=== PATIENT | female | born 1980 | race Two or more races ===

== ENCOUNTER 2021-09-14 22:49 | Emergency (ER) | payer MEDICAID, OTHER ==
[~2021-09-14] VITALS: Ht 175.3 cm; Wt 84.4 kg
[2021-09-15 01:05] VITALS: BP 130/85
[2021-09-15] MEDS ORDERED: ACETAMINOPHEN 500 MG TAB PO ONE (01:15)
== END 2021-09-15 02:53 | disposition home or self-care (01) ==
LOC: EDBD 22:49 → ER 22:49
DX: R42 Dizziness and giddiness (principal); G89.29 Other chronic pain; R10.9 Unspecified abdominal pain
CPT/HCPCS: 93005

== ENCOUNTER 2024-08-25 09:06 | Inpatient (IN) | payer OTHER, MEDICAID ==
[~2024-08-25] VITALS: Ht 175.3 cm; Wt 76.9 kg
[2024-08-25] MEDS: SODIUM CHLORIDE 0.9% 1,000 ML IV ONE (09:45)
[2024-08-25] MEDS: KETOROLAC TROMETH 30 MG/ML 1ML VIAL IV ONE (09:45)
[2024-08-25] MEDS: ONDANSETRON HCL 4 MG/2 ML VIAL IV ONE (09:45)
[2024-08-25 09:46] LABS: Urine Bacteria None Seen /hpf (None Seen)
[2024-08-25 09:51] LABS: Basophils # (auto) 0.1 10 ^3/uL (0-0.2); Eosinophils # (auto) 0.1 10 ^3/uL (0-0.8); Eosinophils % (auto) 1.3 % (0.0-7.0); Hematocrit 38.6 % (36.0-46.0); Lymphocytes # (auto) 2.3 10 ^3/uL (0.4-5.4); Mean Corpuscular Hemoglobin 29.8 pg (28.0-32.0); Mean Corpuscular Hgb Conc. 33.6 g/dL (32.0-36.0); Mean Corpuscular Volume 88.7 fL (80.0-100.0); Monocytes # (auto) 0.2 10 ^3/uL (0-1.3); Monocytes % (auto) 3.7 % (0.0-12.0); Neutrophils # (auto) 3.4 10 ^3/uL (1.6-8.6); Platelet Count (auto) 147 10^3/uL (140-450); Red Blood Cells 4.35 10^6/uL (4.0-5.20); Red Cell Distribution Width 12.7 % (11.8-14.3); White Blood Cell 6.2 10^3/uL (4.4-10.8)
[2024-08-25 10:03] LABS: Urine Blood Negative /uL (Negative); Urine Clarity Clear (Clear); Urine Color Yellow (Yellow); Urine Mucus FEW (None Seen); Urine Protein, UAD TRACE (Negative); Urine Specific Gravity 1.027 (1.001-1.035); Urine Squamous Epithelial Cell FEW /hpf (<5); Urine Urobilinogen Normal (Negative); Urine WBC 1 /HPF (0-5); Urine pH 5.5 (5.0-9.0)
[2024-08-25] MEDS: IOHEXOL 300 MG/ML 100ML BOTTLE IJ ONE (10:03)
[2024-08-25 10:50] LABS: Potassium 4.1 mmol/L (3.5-5.1); Sodium 140 mmol/L (136-145)
[2024-08-25 10:51] LABS: Anion Gap 11 (5-15); Carbon Dioxide 21 mmol/L (20-31)
[2024-08-25 10:52] LABS: Calcium 10.1 mg/dL (8.7-10.4)
[2024-08-25 10:57] LABS: BUN/Creatinine Ratio 10.8 (10.0-20.0); Blood Urea Nitrogen 10 mg/dL (9-23)
[2024-08-25 11:03] LABS: Chloride 108 mmol/L (98-107)
[2024-08-25 11:35] LABS: Glucose 192 mg/dL (74-106)
--- NOTE | 2024-08-25 13:01 | DVH ---
Exam: CT CT AB PEL WITH IV CON ONLY History: lower abdominal pain COMPARISON: None Technique: Multidetector spiral CT of the abdomen and pelvis was performed from lung bases to pubic symphysis. Intravenous contrast was administered during this examination. Portal venous imaging was obtained. Axial, coronal and sagittal multiplanar reformats were performed by the technologist on a separate workstation. Radiation Dose : Abdomen/Pelvis: CTDIvol 5 mGy, DLP 355 mGy*cm. CONTRAST: Type of contrast: Omni 300 Contrast injected: 100 mL Findings: Lung Bases: No acute or significant lung base finding. Normal heart size. No pleural or pericardial effusion. Liver: The liver is normal in size. No focal lesions. Normal hepatic vascular enhancement. Gallbladder and biliary Tree: Unremarkable Spleen: Unremarkable Pancreas: The pancreas is normal in appearance without focal lesions or abnormal enhancement. Adrenal Glands: Unremarkable Kidneys: No hydronephrosis. Bladder: Unremarkable Bowel: The stomach is grossly normal in appearance. Small bowel and colon are normal in caliber and d istribution. Normal appendix is visualized in the right lower quadrant without findings of appendici tis. Ascites: Absent Lymphadenopathy: No mesenteric, retroperitoneal or periportal lymphadenopathy. Abdominal wall and Mesentery: Unremarkable. Vasculature: The visualized abdominal aorta is normal in size and caliber. Abdominal and pelvic vess els demonstrate normal enhancement. Pelvic Organs: The uterus is surgically absent. Musculoskeletal: No aggressive focal bony lesions, acute fractures or dislocation. IMPRESSION: 1. No acute abdominal or pelvic finding. Radiation optimization: All CT scans at this facility use at least one of these dose optimization concepcion hniques: Automated exposure control mA and/or kV adjustment per patient size (includes targeted exams where dose is matched to clinical indication) or iterative reconstruction. HS:Y
--- NOTE | 2024-08-25 13:36 | ED.PDOC ---
History of Present Illness HPI Comments 44-year-old woman status post hysterectomy presents with 1 year of intractable lower abdominal pain that has increased in severity over the past week. She reports the pain is 10 in 10 not relieved by anything. She denies any fever chills nausea vomiting diarrhea dysuria or polyuria. 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 Was a procedure done?: No Differential Dx Considerations may include: Pelvic outlet syndrome, gastritis, gastroenteritis, appendicitis, colitis X-Ray, Labs, Meds, VS Vital Signs Date Time Temp Pulse Resp B/P (MAP) Pulse Ox O2 Delivery O2 Flow Rate FiO2 08/25/24 09:52 97.8 98 15 125/80 (95) 100 97.8 08/25/24 09:52 Room Air* 0 21 08/25/24 09:20 97.0 100 18 128/85 (99) 100 Lab Test 08/25/24 09:36 08/25/24 09:30 Range/Units White Blood Count 6.2 4.4-10.8 10^3/uL Red Blood Count 4.35 4.0-5.20 10^6/uL Hemoglobin 13.0 12.2-16.2 g/dL Hematocrit 38.6 36.0-46.0 % Mean Corpuscular Volume 88.7 80.0-100.0 fL Mean Corpuscular Hemoglobin 29.8 28.0-32.0 pg Mean Corpuscular Hemoglobin Concent 33.6 32.0-36.0 g/dL Red Cell Distribution Width 12.7 11.8-14.3 % Platelet Count 147 140-450 10^3/uL Mean Platelet Volume 10.0 6.9-10.8 fL Neutrophils (%) (Auto) 56.0 37.0-80.0 % Lymphocytes (%) (Auto) 38.0 10.0-50.0 % Monocytes (%) (Auto) 3.7 0.0-12.0 % Eosinophils (%) (Auto) 1.3 0.0-7.0 % Basophils (%) (Auto) 1.0 0.0-2.0 % Neutrophils # (Auto) 3.4 1.6-8.6 10 ^3/uL Lymphocytes # (Auto) 2.3 0.4-5.4 10 ^3/uL Monocytes # (Auto) 0.2 0-1.3 10 ^3/uL Eosinophils # (Auto) 0.1 0-0.8 10 ^3/uL Basophils # (Auto) 0.1 0-0.2 10 ^3/uL Nucleated Red Blood Cells 0.0 % Sodium Level 140 136-145 mmol/L Potassium Level 4.1 3.5-5.1 mmol/L Chloride Level 108 H 98-107 mmol/L Carbon Dioxide Level 21 20-31 mmol/L Anion Gap 11 5-15 Blood Urea Nitrogen 10 9-23 mg/dL Creatinine 0.93 0.550-1.02 mg/dL Glomerular Filtration Rate Calc 78 >90 mL/min BUN/Creatinine Ratio 10.8 10.0-20.0 Serum Glucose 192 H 74-106 mg/dL Calcium Level 10.1 8.7-10.4 mg/dL Urine Color Yellow Yellow Urine Clarity Clear Clear Urine pH 5.5 5.0-9.0 Urine Specific [place] 1.027 1.001-1.035 Urine Protein Trace H Negative Urine Ketones Negative Negative Urine Blood Negative Negative /uL Urine Nitrite Negative Negative Urine Bilirubin Negative Negative Urine Urobilinogen Normal Negative mg/dL Urine Leukocyte Esterase Trace Negative /uL Urine RBC <1 0 - 4 /hpf Urine Microscopic WBC 1 0-5 /HPF Urine Squamous Epithelial Cells Few <5 /hpf Urine Bacteria None seen None Seen /hpf Urine Mucus Few None Seen Urine Glucose Trace Normal mg/dL Urine Test Negative Negative Current Medications Medications (Trade) Dose Ordered Sig/Angelique Route Start Time Stop Time Status Last Admin Sodium Chloride 1,000 ml @ 1,000 mls/hr Q1H ONCE IV 08/25/24 09:30 08/25/24 10:29 DC 08/25/24 09:45 Ondansetron HCl (Zofran) 4 mg ONCE ONCE IV 08/25/24 09:30 08/25/24 09:31 DC 08/25/24 09:45 Ketorolac Tromethamine (Toradol Injection) 15 mg ONCE ONCE IV 08/25/24 09:30 08/25/24 09:31 DC 08/25/24 09:45 Time of 1ST Reevaluation: 13:33 Reevaluation 1ST: Improved Patient Education/Counseling: Diagnosis, Treatment Family Education/Counseling: No Family Present Departure 1 Departure Time of Disposition: 13:33 (Patient presented with abdominal pain that was concerning for possible appendicits, gastritis, cholecystitis, colitis, gastroenteritis, sbo, or orther possible surgical emergency. Data: 1. I ordered and reviewed the result of at least 3 labs including a CBC, BMP, and Urinalysis. 2. I independently interpreted the following tests: CT Abdoment and Pelvis is concerning for benign abdomen .Risk:This patient has a high risk of morbidity due to further diagnostic testing or treatment and may suffer from an acute abdominal process disorder. Workup reveals intractable abdominal pain and patient should be admitted for further workup. and possible expert consultation. ) Impression: Primary Impression: Intractable abdominal pain Disposition: ADMITTED INPATIENT Admit to: Med Surg Condition: Serious Critical Care Note Critical Care Time?: No Stability Stability form required: No Heart Score Heart Score: Heart Score Response (Comments) Value History N/A 0 EKG N/A 0 Age N/A 0 Risk Factors N/A 0 Troponin N/A 0 Total 0 VICTOR MANUEL GUPTA MD Aug 25, 2024 13:36
[2024-08-25] MEDS ORDERED: ONDANSETRON HCL 4 MG/2 ML VIAL IV PRN (15:00)
[2024-08-25] MEDS ORDERED: DOCUSATE SOD 100 MG CAP PO PRN (15:00)
[2024-08-25] MEDS ORDERED: ACETAMINOPHEN 325 MG TAB PO PRN (15:00)
[2024-08-25] MEDS ORDERED: MORPHINE SULFATE INJ 2 MG/ml SYRG IV PRN (15:30)
[2024-08-25] MEDS ORDERED: NITROGLYCERIN 0.4 MG SL TAB SL PRN (15:30)
[2024-08-25] MEDS ORDERED: DEXTROSE (50%) 50ML SYRG IV PRN (15:30)
--- NOTE | 2024-08-25 15:34 | DVHHP2 ---
History of Present Illness Reason for Visit: Intractable abdominal pain History of Present Illness The patient is a 44-year-old female with past medical history of DM and schizophrenia presented to [facility] ED with complaint intermittent abdominal pain for the past 1 year. Patient reports symptoms progressively get worse with intractable lower abdominal pain, increasing severity, rating 10/10 numeric scale, getting worse that prompted this visit. Patient was seen and evaluated in the ED, laboratory data shows WBC 6.2, platelets 147, sodium 140, potassium 4.1, BUN 10, creatinine 0.93, GFR 78, glucose 192, calcium 10.1. Abdomen/pelvis CT showed no acute abdominal or pelvic finding. Please see medication orders section in the computer. On my assessment, patient denied chest pain, no headache, no dizziness, no shortness of breath, no abdominal pain at this moment, no diarrhea, no nausea, no vomiting, no fever, no chills. Patient was admitted for further evaluation and medical management. Past Medical History Diabetes mellitus, schizophrenia Past Surgical History Denies all surgeries Family History Reviewed, noncontributory to the management of this case. Past Social History The patient lives at home, denies smoking, alcohol or illicit drugs abuse. Review of Systems Constitutional: No: Fever, Chills, Sweats, Weakness, Malaise, Other Eyes: No: Pain, Vision change, Conjunctivae inflammation, Eyelid inflammation, Other, Redness ENT: No: Ear pain, Ear discharge, Nose pain, Nose discharge, Nose congestion, Mouth pain, Mouth swelling, Throat pain, Throat swelling, Other Respiratory: No: Cough, Dry, Shortness of breath, SOB with excertion, Wheezing, Hemoptysis, Pleuritic Pain, Sputum, Wheezing, Other Cardiovascular: No: Chest Pain, Palpitations, Orthopnea, Paroxysmal Noc. Dyspnea, Edema, Lt Headedness, Other Gastrointestinal: Abdominal Pain; No: Nausea, Vomiting, Diarrhea, Constipation, Melena, Hematochezia, Other Genitourinary: No Dysuria, No Frequency, No Incontinence, No Hematuria, No Retention, No Other Musculoskeletal: No: other, neck pain, shoulder pain, arm pain, back pain, hand pain, leg pain, foot pain Skin: No: Rash, Lesions, Jaundice, Bruising, Other Neurological: No: Weakness, Numbness, Incoordination, Change in speech, Confusion, Seizures, Other Allergies: Coded Allergies: Morphine (Verified Allergy, Unknown, 09/14/21) Medications Current Medications Medications Dose Ordered Sig/Angelique Route Start Time Stop Time Status Last Admin Dose Admin Pantoprazole Sodium 40 mg DAILY IV 08/26/24 10:00 Sodium Chloride 10 ml Q8HR IV 08/25/24 22:00 Acetaminophen/ Hydrocodone Bitart 1 tab Q4HP PRN PO 08/25/24 15:00 Ondansetron HCl 4 mg Q4HP PRN IV 08/25/24 15:00 Docusate Sodium 100 mg BIDPRN PRN PO 08/25/24 15:00 Acetaminophen 650 mg Q6HP PRN PO 08/25/24 15:00 Exam Vital Signs Vital Signs Date Time Temp Pulse Resp B/P (MAP) Pulse Ox O2 Delivery O2 Flow Rate FiO2 08/25/24 09:52 97.8 98 15 125/80 (95) 100 97.8 08/25/24 09:52 Room Air* 0 21 General Appearance: Alert, Oriented X3, Cooperative, No acute distress HEENT: Atraumatic, PERRLA, EOMI, Mucous membr. moist/pink Respiratory: Clear to auscultation, Normal air movement Cardiovascular: Regular rate, Normal S1, Normal S2, No murmurs Abdominal: Normal bowel sounds, Soft, No tenderness, No hepatospenomegaly, No masses Extremities: No clubbing, No cyanosis, No edema, Normal pulses, No tenderness/swelling Skin: No rashes, No breakdown, No significant lesion Neuro: Normal gait, Normal speech, Strength at 5/5 X4 ext, Normal tone, Sens ation intact, Cranial nerves 3-12 NL, Reflexes 2+ Psych/Mental Status: Mental status NL, Mood NL Labs/Xrays Labs Test 08/25/24 09:36 08/25/24 09:30 Range/Units White Blood Count 6.2 4.4-10.8 10^3/uL Red Blood Count 4.35 4.0-5.20 10^6/uL Hemoglobin 13.0 12.2-16.2 g/dL Hematocrit 38.6 36.0-46.0 % Mean Corpuscular Volume 88.7 80.0-100.0 fL Mean Corpuscular Hemoglobin 29.8 28.0-32.0 pg Mean Corpuscular Hemoglobin Concent 33.6 32.0-36.0 g/dL Red Cell Distribution Width 12.7 11.8-14.3 % Platelet Count 147 140-450 10^3/uL Mean Platelet Volume 10.0 6.9-10.8 fL Neutrophils (%) (Auto) 56.0 37.0-80.0 % Lymphocytes (%) (Auto) 38.0 10.0-50.0 % Monocytes (%) (Auto) 3.7 0.0-12.0 % Eosinophils (%) (Auto) 1.3 0.0-7.0 % Basophils (%) (Auto) 1.0 0.0-2.0 % Neutrophils # (Auto) 3.4 1.6-8.6 10 ^3/uL Lymphocytes # (Auto) 2.3 0.4-5.4 10 ^3/uL Monocytes # (Auto) 0.2 0-1.3 10 ^3/uL Eosinophils # (Auto) 0.1 0-0.8 10 ^3/uL Basophils # (Auto) 0.1 0-0.2 10 ^3/uL Nucleated Red Blood Cells 0.0 % Sodium Level 140 136-145 mmol/L Potassium Level 4.1 3.5-5.1 mmol/L Chloride Level 108 H 98-107 mmol/L Carbon Dioxide Level 21 20-31 mmol/L Anion Gap 11 5-15 Blood Urea Nitrogen 10 9-23 mg/dL Creatinine 0.93 0.550-1.02 mg/dL Glomerular Filtration Rate Calc 78 >90 mL/min BUN/Creatinine Ratio 10.8 10.0-20.0 Serum Glucose 192 H 74-106 mg/dL Calcium Level 10.1 8.7-10.4 mg/dL Urine Color Yellow Yellow Urine Clarity Clear Clear Urine pH 5.5 5.0-9.0 Urine Specific [place] 1.027 1.001-1.035 Urine Protein Trace H Negative Urine Ketones Negative Negative Urine Blood Negative Negative /uL Urine Nitrite Negative Negative Urine Bilirubin Negative Negative Urine Urobilinogen Normal Negative mg/dL Urine Leukocyte Esterase Trace Negative /uL Urine RBC <1 0 - 4 /hpf Urine Microscopic WBC 1 0-5 /HPF Urine Squamous Epithelial Cells Few <5 /hpf Urine Bacteria None seen None Seen /hpf Urine Mucus Few None Seen Urine Glucose Trace Normal mg/dL Urine Test Negative Negative PATIENT: KAT ZULUAGA RACCT: [id number] UNIT: [id number] : 1980 LOC: ER ROOM / BED: / AGE / SEX: 44 / F ADM STATUS: REG ER SERVICE [id number] ORDERING PHYSICIAN: VICTOR MANUEL GUPTA MD PROCEDURE(s): ABPLIV - CT AB PEL WITH IV CON ONLY REASON: lower abdominal pain ORDER NUMBER(s): [id number], ACCESSION NUMBER(s): [id number] Exam: CT CT AB PEL WITH IV CON ONLY History: lower abdominal pain COMPARISON: None Technique: Multidetector spiral CT of the abdomen and pelvis was performed from lung bases to pubic symphysis. Intravenous contrast was administered during this examination. Portal venous imaging was obtained. Axial, coronal and sagittal multiplanar reformats were performed by the technologist on a separate workstation. Radiation Dose: Abdomen/Pelvis: CTDIvol 5 mGy, DLP 355 mGy*cm. CONTRAST: Type of contrast: Omni 300 Contrast injected: 100 mL Findings: Lung Bases: No acute or significant lung base finding. Normal heart size. No pleural or pericardial effusion. Liver: The liver is normal in size. No focal lesions. Normal hepatic vascular enhancement. Gallbladder and biliary Tree: Unremarkable Spleen: Unremarkable Pancreas: The pancreas is normal in appearance without focal lesions or abnormal enhancement. Adrenal Glands: Unremarkable Kidneys: No hydronephrosis. Bladder: Unremarkable Bowel: The stomach is grossly normal in appearance. Small bowel and colon are normal in caliber and distribution. Normal appendix is visualized in the right lower quadrant without findings of appendicitis. Ascites: Absent Lymphadenopathy: No mesenteric, retroperitoneal or periportal lymphadenopathy. Abdominal wall and Mesentery: Unremarkable. Vasculature: The visualized abdominal aorta is normal in size and caliber. Abdominal and pelvic vessels demonstrate normal enhancement. Pelvic Organs: The uterus is surgically absent. Musculoskeletal: No aggressive focal bony lesions, acute fractures or dislocation. IMPRESSION: 1. No acute abdominal or pelvic finding. Assessment/Plan Assessment/Plan Intractable abdominal pain Diabetes mellitus with hyperglycemia Plan 1. Admit to med surge unit 2. Breathing treatment 3. Pain control management 4. Management of fluids and electrolytes 5. Consultation for hospitalist 6. Diagnostic tests abdomen/pelvis CT 7. DVT prophylaxis on SCDs 8. Repeat labs CBC, CMP in a.m. 9. Continue with current medical management 10. Treatment plan discussed with patient and RN. Patient verbalized understanding. Plan discussed with: Patient, Other (RN) My Orders Orders - NATHAN RAGSDALE DNP Procedure Category Date Status Time Hemoglobin A1c LAB 08/25/24 In Process 14:49 Pantoprazole PHA 08/26/24 In Process (Protonix) 10:00 Allergies ZION 08/25/24 In Process 14:49 Code Status CODE 08/25/24 Transmitted 14:49 Sodium Chloride Lock PHA 08/25/24 In Process (Saline Lock Ns) 22:00 Oxygen Per Hour RT 08/25/24 Transmitted 14:49 Hydrocodone-Acet PHA 08/25/24 In Process 5/325mg Tab ([place] 15:00 Ondansetron Hcl PHA 08/25/24 In Process (Zofran) 15:00 Docusate Sodium PHA 08/25/24 In Process Capsule (Colace 15:00 Complete Blood Count LAB 08/26/24 Verified 04:00 Comprehensive LAB 08/26/24 Verified Metabolic Panel 04:00 Condition: Serious ZION 08/25/24 In Process 14:49 Acetaminophen Tablet PHA 08/25/24 In Process (Tylenol Tablet) 15:00 Bedrest With Bathroom ZION 08/25/24 In Process Privileg 14:49 Sequential ZION 08/25/24 In Process Compression Device Risperidone Tablet PHA 08/26/24 Verified (Risperdal Tablet) 10:00 Consistent DIET 08/25/24 Verified Carb(Ccho)Diabetes Dinner Glucose Blood PHA 08/25/24 Verified (Accu-Chek Comfort 17:00 Bedtime Insulin Scale PHA 08/25/24 Verified 22:00 Moderate Insulin Ss PHA 08/25/24 Verified 17:00 Dextrose 50% Syringe PHA 08/25/24 Verified 15:30 Admit ADMIT 08/25/24 Verified 15:29 Nitroglycerin PHA 08/25/24 Verified Sublingual (Ntrostat 15:30 Morphine Sulfate PHA 08/25/24 Verified Injection 15:30 Notify Md Of Changes ZION 08/25/24 Verified From Base 15:29 Emergency Dysrhythmia ZION 08/25/24 Verified Protocol 15:29 Oxygen By Nasal RT 08/25/24 Verified Cannula 15:29 Problem List: (1) Intractable abdominal pain (2) Diabetes mellitus with hyperglycemia Date of Service: Aug 25, 2024 Billing Provider: NATHAN RAGSDALE DNP Common Visit Codes: 51840-[id number] INP/OBS CARE (HIGH) NATHAN RAGSDALE DNP Aug 25, 2024 15:34
[2024-08-25] MEDS: PANTOPRAZOLE 40 MG/10 ML VIAL INJ IV ONE (16:03)
[2024-08-25] MEDS: ACCU-CHEK COMFORT CURVE STRIP VI SCH (17:00)
[2024-08-25] MEDS: InsuLIN REG 1unit/0.01ml Soln (100units/ml) SC SCH ×2 (17:00→21:06)
[2024-08-25 17:05] VITALS: BP 137/89; PULSE 89; RESP 20; TEMP 98; O2SAT 98
[2024-08-25] MEDS: HYDROcodone-ACET 5/325MG TAB PO PRN (20:03)
[2024-08-25 20:18] VITALS: BP 124/68; PULSE 75; RESP 18; O2SAT 96
[2024-08-25] MEDS: SODIUM CHLOR 0.9% PF (SALINE LOCK) 10ML VIAL/SYR IV SCH (20:42)
[2024-08-25 21:00] VITALS: BP 120/73; PULSE 83; RESP 20; TEMP 97.8; O2SAT 95
[2024-08-25 22:10] VITALS: BP 128/79; PULSE 83; RESP 18; TEMP 98; O2SAT 98
[2024-08-25 22:20] VITALS: PULSE 83; RESP 1; O2SAT 98
[2024-08-26] MEDS ORDERED: METF-370 PO (00:34)
[2024-08-26] MEDS ORDERED: GABA-1250 PO (00:34)
[2024-08-26 00:35] VITALS: BP 128/79; PULSE 83; RESP 18; TEMP 98; O2SAT 98
[2024-08-26 05:58] LABS: Basophils # (auto) 0 10 ^3/uL (0-0.2); Basophils % (auto) 0.2 % (0.0-2.0); Eosinophils # (auto) 0.1 10 ^3/uL (0-0.8); Hematocrit 34.1 % (36.0-46.0); Hemoglobin 11.5 g/dL (12.2-16.2); Lymphocytes % (auto) 46.9 % (10.0-50.0); Mean Corpuscular Hgb Conc. 33.7 g/dL (32.0-36.0); Monocytes # (auto) 0.5 10 ^3/uL (0-1.3); Monocytes % (auto) 7.5 % (0.0-12.0); Neutrophils # (auto) 2.8 10 ^3/uL (1.6-8.6); Neutrophils % (auto) 43.4 % (37.0-80.0); Platelet Count (auto) 141 10^3/uL (140-450); Red Blood Cells 3.83 10^6/uL (4.0-5.20); Red Cell Distribution Width 12.5 % (11.8-14.3); White Blood Cell 6.5 10^3/uL (4.4-10.8)
[2024-08-26 06:23] LABS: Albumin 4.2 g/dL (3.2-4.8); Alkaline Phosphatase 72 U/L (46-116); Anion Gap 8 (5-15); Bilirubin, Total 0.5 mg/dL (0.2-1.0); Blood Urea Nitrogen 12 mg/dL (9-23); Calcium 9.9 mg/dL (8.7-10.4); Carbon Dioxide 27 mmol/L (20-31); Glucose 89 mg/dL (74-106); Potassium 4.4 mmol/L (3.5-5.1); Sodium 145 mmol/L (136-145); Total Protein 6.5 g/dL (5.7-8.2)
[2024-08-26 06:26] LABS: Alanine Aminotransferase < 9 U/L (7-40); Aspartate Aminotransferase 10 U/L (13-40); Chloride 110 mmol/L (98-107)
[2024-08-26 08:00] VITALS: PULSE 72; RESP 16; O2SAT 97
[2024-08-26 09:16] VITALS: BP 127/79; PULSE 72; RESP 16; TEMP 97.8; O2SAT 97
[2024-08-26] MEDS ORDERED: PANTOPRAZOLE 40 MG/10 ML VIAL INJ IV SCH (10:00)
--- NOTE | 2024-08-26 11:07 | DVHPNRES ---
Progress Note Date Seen: Aug 26, 2024 Resident Creating Document: WALESKA RUDOLPH RESIDENT Subjective Review of Systems Is a 44 years old female with past medical history of type 2 diabetes mellitus, schizophrenia presented to the ED with a chief complaint of intermittent abdominal pain for 1 year prior to this admission. The patient states that she has intermittent abdominal pain for last 1 year, mostly in the right lower quadrant 7/10, localized without any aggravating and relieving factors and associated with few episodes of vomiting that prompted this visit. The patient denies nausea, any change in bowel habit, hematuria, hematochezia or any other sick contact. The patient was seen and examined on the bedside. She is alert oriented x3. Complaint of mild lower abdominal pain mostly in the right side. No other active complaint. Constitutional: No: Fever, Chills, Sweats, Weakness, Malaise, Other Eyes: No: Pain, Vision change, Conjunctivae inflammation, Eyelid inflammation, Other, Redness ENT: No: Ear pain, Ear discharge, Nose pain, Nose discharge, Nose congestion, Mouth pain, Mouth swelling, Throat pain, Throat swelling, Other Respiratory: Shortness of breath, improving No: Cough, Dry,Wheezing, Hemoptysis, Pleuritic Pain, Sputum, Wheezing, Other Cardiovascular: No: Chest Pain, Palpitations, Orthopnea, Paroxysmal Noc. Dyspnea, Edema, Lt Headedness, Other Gastrointestinal: Abdominal Pain,No: Nausea, Vomiting, Diarrhea, Constipation, Melena, Hematochezia, Other Musculoskeletal: No: other, neck pain, shoulder pain, arm pain, back pain, hand pain, leg pain, foot pain Neurological:; No: Weakness, Numbness, Incoordination, Change in speech, Confusion, Seizures Objective vital signs Vital Sign Date Time Temp Pulse Resp B/P (MAP) Pulse Ox O2 Delivery O2 Flow Rate FiO2 08/26/24 09:16 97.8 72 16 127/79 (95) 97 97.8 08/25/24 22:20 Room Air* 0 21 Total Intake and Output 08/25/24 08/25/24 08/26/24 15:00 23:00 07:00 Intake Total 1000 ml Output Total 2 ml Balance 1000 ml -2 ml medications Current Medications Medications Dose Ordered Sig/Angelique Route Start Time Stop Time Status Last Admin Dose Admin Sodium Chloride 10 ml Q8HR IV 08/25/24 22:00 08/26/24 06:47 10 ML Acetaminophen/ Hydrocodone Bitart 1 tab Q4HP PRN PO 08/25/24 15:00 08/26/24 06:51 1 TAB Ondansetron HCl 4 mg Q4HP PRN IV 08/25/24 15:00 Docusate Sodium 100 mg BIDPRN PRN PO 08/25/24 15:00 Acetaminophen 650 mg Q6HP PRN PO 08/25/24 15:00 Risperidone 1 mg DAILY PO 08/26/24 10:00 Diagnostic Test (Pha) 1 strip ACHS 08/25/24 17:00 08/26/24 06:47 1 STRIP Insulin Human Regular HS SC 08/25/24 22:00 08/25/24 21:06 3 UNITS Insulin Human Regular AC SC 08/25/24 17:00 Dextrose 50 ml UD PRN IV 08/25/24 15:30 Nitroglycerin 0.4 mg Q5MINP PRN SL 08/25/24 15:30 Morphine Sulfate 2 mg Q30M PRN IV 08/25/24 15:30 Hold Pantoprazole Sodium 40 mg DAILY@0600 PO 08/27/24 06:00 Examination Physical examination: General Appearance: Alert, Oriented X3, Cooperative, No acute distress HEENT: Atraumatic, PERRLA, EOMI, Mucous membrane moist/pink Respiratory: Clear to auscultation, Normal air movement Cardiovascular: Regular rate, Normal S1, Normal S2, No murmurs, no chest wall tenderness Abdominal: Normal bowel sounds, Soft, No tenderness, No hepatospenomegaly, No masses Extremities: No clubbing, No cyanosis, No edema, Normal pulses, No tenderness/swelling Skin: No rashes, No breakdown, No significant lesion Neuro: Normal gait, Normal speech, Strength at 5/5 X4 ext, Normal tone, Sensation intact, grossly intact cranial nerves Psych/Mental Status: Mental status NL, Mood NL laboratory and microbiology Laboratory Tests 08/26/24 05:35 Test 08/26/24 05:35 Range/Units Serum Glucose 89 74-106 mg/dL Labs and/or images reviewed: Labs reviewed by me, Image(s) reviewed by me Problem List/Assessment/Plan Problem List/Assessment/Plan Assessment and plan: # Intractable abdominal pain, ruled out acute abdomen # Possible gastritis - CBC, CMP are unremarkable - U/A normal, lipase is normal - CT abdomen pelvis without contrast revealed no acute in intra-abdominal abnormality. - Protonix 40 mg p.o. daily - Acetaminophen 650 mg p.o q.6 p.r.n. - IV ondansetron 4 mg Q 8 p.r.n. # Type 2 diabetes mellitus, hemoglobin A1c 5.2 - Mild sliding scale of insulin # History of schizophrenia - Continue risperidone 1 mg daily. Goal of care discussed with the patient for more than 20 minutes full code Plan discussed with Dr. Kline Plan discussed with: Patient, Other My Orders My Orders Orders - WALESKA RUDOLPH RESIDENT Procedure Category Date Status Time Drug Screen LAB 08/26/24 Logged 06:49 Communication Order ORDERS 08/26/24 Transmitted 06:49 Lipase LAB 08/26/24 In Process 10:22 Pantoprazole Tablet PHA 08/27/24 In Process (Protonix Tablet) 06:00 WALESKA RUDOLPH RESIDENT Aug 26, 2024 11:07
[2024-08-26] MEDS: risperiDONE 1 MG TAB PO SCH (11:33)
[2024-08-26] MEDS: PANTOPRAZOLE 40 MG TAB PO ONE (11:33)
[2024-08-26] MEDS ORDERED: DEXTROSE (50%) 50ML SYRG IV PRN (11:45)
[2024-08-26 12:53] LABS: Opiate Scree,Urine Pos (NEGATIVE)
[2024-08-26 12:59] LABS: Amphetamine Screen, Urine Neg (NEGATIVE); Barbiturate Scree,Urine Neg (NEGATIVE); Benzodiazephine Screen, Urine Neg (NEGATIVE); Cannabinoid Screen, Urine Neg (NEGATIVE); Cocaine Screen, Urine Neg (NEGATIVE); Phencyclidine Screen, Urine Neg (NEGATIVE)
[2024-08-26 13:12] VITALS: BP 104/78; PULSE 72; RESP 18; TEMP 97.8; O2SAT 99
[2024-08-26] MEDS ORDERED: FAMO20TA10 PO (14:48)
[2024-08-26 16:15] VITALS: BP 104/78; PULSE 72; RESP 18; TEMP 97.8; O2SAT 99
[2024-08-26] MEDS ORDERED: InsuLIN REG 1unit/0.01ml Soln (100units/ml) SC SCH (17:00)
[2024-08-26] MEDS ORDERED: ACCU-CHEK COMFORT CURVE STRIP VI SCH (17:00)
--- NOTE | 2024-08-26 17:05 | DVHDSRES ---
Discharge Summary Date of Admission Resident Creating Document: WALESKA RUDOLPH RESIDENT Aug 25, 2024 at 15:29 Date of Discharge: Aug 26, 2024 Admitting Diagnosis Intractable abdominal pain Wounds: No wound was present Labs/Diagnostic Data: Laboratory Results Test 08/26/24 12:00 08/26/24 11:35 08/26/24 05:35 08/25/24 09:36 Urine Opiates Screen Pos (NEGATIVE) Urine Fentanyl Screen Neg (NEGATIVE) Urine Barbiturates Screen Neg (NEGATIVE) Urine Phencyclidine Screen Neg (NEGATIVE) Urine Amphetamines Screen Neg (NEGATIVE) Urine Benzodiazepines Screen Neg (NEGATIVE) Urine Cocaine Screen Neg (NEGATIVE) Urine Cannabinoids Screen Neg (NEGATIVE) POC Glucose 117 mg/dl (70-106) White Blood Count 6.5 10^3/uL (4.4-10.8) Red Blood Count 3.83 10^6/uL (4.0-5.20) Hemoglobin 11.5 g/dL (12.2-16.2) Hematocrit 34.1 % (36.0-46.0) Mean Corpuscular Volume 89.0 fL (80.0-100.0) Mean Corpuscular Hemoglobin 30.0 pg (28.0-32.0) Mean Corpuscular Hemoglobin Concent 33.7 g/dL (32.0-36.0) Red Cell Distribution Width 12.5 % (11.8-14.3) Platelet Count 141 10^3/uL (140-450) Mean Platelet Volume 9.4 fL (6.9-10.8) Neutrophils (%) (Auto) 43.4 % (37.0-80.0) Lymphocytes (%) (Auto) 46.9 % (10.0-50.0) Monocytes (%) (Auto) 7.5 % (0.0-12.0) Eosinophils (%) (Auto) 2.0 % (0.0-7.0) Basophils (%) (Auto) 0.2 % (0.0-2.0) Neutrophils # (Auto) 2.8 10 ^3/uL (1.6-8.6) Lymphocytes # (Auto) 3.0 10 ^3/uL (0.4-5.4) Monocytes # (Auto) 0.5 10 ^3/uL (0-1.3) Eosinophils # (Auto) 0.1 10 ^3/uL (0-0.8) Basophils # (Auto) 0 10 ^3/uL (0-0.2) Nucleated Red Blood Cells 0.0 % Sodium Level 145 mmol/L (136-145) Potassium Level 4.4 mmol/L (3.5-5.1) Chloride Level 110 mmol/L (98-107) Carbon Dioxide Level 27 mmol/L (20-31) Anion Gap 8 (5-15) Blood Urea Nitrogen 12 mg/dL (9-23) Creatinine 0.80 mg/dL (0.550-1.02) Glomerular Filtration Rate Calc 94 mL/min (>90) BUN/Creatinine Ratio 15.0 (10.0-20.0) Serum Glucose 89 mg/dL (74-106) Calcium Level 9.9 mg/dL (8.7-10.4) Total Bilirubin 0.5 mg/dL (0.2-1.0) Aspartate Amino Transferase (AST) 10 U/L (13-40) Alanine Aminotransferase (ALT) < 9 U/L (7-40) Alkaline Phosphatase 72 U/L (46-116) Total Protein 6.5 g/dL (5.7-8.2) Albumin 4.2 g/dL (3.2-4.8) Lipase 36 U/L (12-53) Thyroid Stimulating Hormone (TSH) 1.82 uIU/mL (0.55-4.78) Hemoglobin A1c 5.2 % A1C (<5.7) Test 08/25/24 09:30 Urine Color Yellow (Yellow) Urine Clarity Clear (Clear) Urine pH 5.5 (5.0-9.0) Urine Specific Mccaskill 1.027 (1.001-1.035) Urine Protein Trace (Negative) Urine Ketones Negative (Negative) Urine Blood Negative /uL (Negative) Urine Nitrite Negative (Negative) Urine Bilirubin Negative (Negative) Urine Urobilinogen Normal mg/dL (Negative) Urine Leukocyte Esterase Trace /uL (Negative) Urine RBC <1 /hpf (0 - 4) Urine Microscopic WBC 1 /HPF (0-5) Urine Squamous Epithelial Cells Few /hpf (<5) Urine Bacteria None seen /hpf (None Seen) Urine Mucus Few (None Seen) Urine Glucose Trace mg/dL (Normal) Urine Test Negative (Negative) Other Laboratory Tests 08/26/24 05:35 Brief Hx & Hospital Course: This is a 44 years old female with past medical history of type 2 diabetes mellitus, schizophrenia presented to the ED with a chief complaint of intermittent abdominal pain for 1 year prior to this admission. The patient states that she has intermittent abdominal pain for last 1 year, mostly in the right lower quadrant 7/10, localized without any aggravating and relieving factors and associated with few episodes of vomiting that prompted this visit. The patient denies nausea, any change in bowel habit, hematuria, hematochezia or any other sick contact. Hospital course: Initial CBC, CMP are unremarkable ,U/A normal, lipase was normal and CT abdomen pelvis without contrast revealed no acute in intra- abdominal abnormality. Patient was treated with Protonix 40 mg p.o. daily, Acetaminophen 650 mg p.o q.6 p.r.n., IV ondansetron 4 mg Q 8 p.r.n. and mild sliding scale of insulin. Discharge plan was discussed with the patient and all questions were answered. Patient is being discharged to home. Discharge plan: Disposition: Home Medications: Pepcid 20 mg b.i.d. for 30 days Follow up : PCP in 1 week Consults/Reason for consult No consultation was done Operations or Procedures Exam: CT CT AB PEL WITH IV CON ONLY History: lower abdominal pain COMPARISON: None Technique: Multidetector spiral CT of the abdomen and pelvis was performed from lung bases to pubic symphysis. Intravenous contrast was administered during this examination. Portal venous imaging was obtained. Axial, coronal and sagittal multiplanar reformats were performed by the technologist on a separate workstation. Radiation Dose : Abdomen/Pelvis: CTDIvol 5 mGy, DLP 355 mGy*cm. CONTRAST: Type of contrast: Omni 300 Contrast injected: 100 mL Findings: Lung Bases: No acute or significant lung base finding. Normal heart size. No pleural or pericardial effusion. Liver: The liver is normal in size. No focal lesions. Normal hepatic vascular enhancement. Gallbladder and biliary Tree: Unremarkable Spleen: Unremarkable Pancreas: The pancreas is normal in appearance without focal lesions or abnormal enhancement. Adrenal Glands: Unremarkable Kidneys: No hydronephrosis. Bladder: Unremarkable Bowel: The stomach is grossly normal in appearance. Small bowel and colon are normal in caliber and distribution. Normal appendix is visualized in the right lower quadrant without findings of appendicitis. Ascites: Absent Lymphadenopathy: No mesenteric, retroperitoneal or periportal lymphadenopathy. Abdominal wall and Mesentery: Unremarkable. Vasculature: The visualized abdominal aorta is normal in size and caliber. Abdominal and pelvic vessels demonstrate normal enhancement. Pelvic Organs: The uterus is surgically absent. Musculoskeletal: No aggressive focal bony lesions, acute fractures or dislocation. IMPRESSION: 1. No acute abdominal or pelvic finding. Condition at Discharge: Stable Final Diagnosis/Problems List # Intractable abdominal pain, ruled out acute abdomen # Possible gastritis # Type 2 diabetes mellitus, hemoglobin A1c 5.2 # History of schizophrenia Discharge Disposition: Home Discharge Instruct/Medications Diet: Consistent carbohydrate Activity: No Restrictions, As Tolerated Follow Up/Referral: Follow up with PCP in 1 week Medications: Pepcid 20 mg b.i.d for 30 days Discharge Statement: "Patient was advised to return to the ER or call 911 if any headaches, dizziness, shortness of breath, chest pain, abdominal pain, bleeding, fevers, or worsening of medical condition. Patient was counseled about treatment plan, medications, possible side effects, patientverbalized understanding. All questions were answered to the best of my ability. This discharge took greater then 30 minutes in planning, reviewing documentation, counseling the patient, and discussing with other team members." ASSESSMENT ASSESSMENT Assessment INTRACTABLE ABDOMINAL PAIN WALESKA RUDOLPH RESIDENT Aug 26, 2024 17:05
[2024-08-27] MEDS ORDERED: PANTOPRAZOLE 40 MG TAB PO SCH (06:00)
== END 2024-08-26 16:35 | disposition home or self-care (01) | DRG 392 ==
LOC: ER 09:06 → OVERFLOW 15:29 → EAST 22:03
PROVIDERS: ADMIT Student in an Organized Health Care Education/Training Program; ATTEND Emergency Medicine
DX: K29.70 Gastritis, unspecified, without bleeding (principal); E11.65 Type 2 diabetes mellitus with hyperglycemia; F20.9 Schizophrenia, unspecified; Z88.5 Allergy status to narcotic agent; Z90.710 Acquired absence of both cervix and uterus
CPT/HCPCS: 36415; 74177; 80048; 80053; 80307; 81001; 81025; 82962; 83036; 83690; 84443; 85025; G0378; J1815; J1885; J2405; J2470